=== PATIENT | male | born 1940 | race Caucasian/White ===

== ENCOUNTER → 2017-05-26 | Outpatient (CLI) | payer MEDICARE ==
[~2017-05-26] MED LIST: CEPH500 PO; COMBIVENT RESPIM4 GM IH; FISH1000 PO; FURO20 PO; GABA300 PO; LOSARTAN POTAS100 MG PO; METO25ER PO; Multiple Vitam1 EAC1 PO; WARF2.5 PO; WARF5 PO
== END | disposition home or self-care (01) ==
LOC: LAB SHORT 08:09 → PLD 08:09
DX: D48.5 Neoplasm of uncertain behavior of skin (principal)
CPT/HCPCS: 88305